=== PATIENT | female | born 1960 | race Two or more races ===

== ENCOUNTER 2017-02-27 16:08 | Outpatient (CLI) | payer BC | END 2017-02-27 23:59 | disposition home or self-care (01) | LOC: LAB 16:08 | PROVIDERS: ATTEND Family Medicine | DX: Z12.4 Encounter for screening for malignant neoplasm of cervix (principal); Z11.3 Encounter for screening for infections with a predominantly sexual mode of transmission | CPT/HCPCS: 87491; 87591; 88142 ==

== ENCOUNTER 2017-03-20 12:49 | Outpatient (CLI) | payer BC ==
[~2017-03-20 12:49] MED LIST: LORAZEPAM INJ 2 MG/ML VIAL ONE
[2017-03-20 15:56] LABS: BASOPHILS % (AUTO) 0.3 % (0.0-2.0); EOSINOPHILS # (AUTO) 0.1 /CMM (0.0-0.7); EOSINOPHILS % (AUTO) 2.1 % (0.0-6.0); HEMATOCRIT 40 % (33-45); HEMOGLOBIN 13.5 g/dL (11.5-14.8); LYMPHOCYTES # (AUTO) 1.9 /CMM (0.8-4.8); LYMPHOCYTES % (AUTO) 37.6 % (20.0-44.0); MEAN CORPUSCULAR HEMOGLOBIN 32 PG (26.0-33.0); MEAN CORPUSCULAR HGB CONC 34 g/dl (31.0-36.0); MEAN CORPUSCULAR VOLUME 96 fL (82-100); MONOCYTES # (AUTO) 0.4 /CMM (0.1-1.30); MONOCYTES % (AUTO) 8.5 % (2.0-12.0); NEUTROPHILS # (AUTO) 2.6 /CMM (1.8-8.9); NEUTROPHILS % (AUTO) 51.5 % (43.0-81.0); PLATELET COUNT (AUTO) 181 /CMM (150-450); RDW COEFFICIENT OF VARIATION 13.3 (11.5-15.0); RED BLOOD CELL COUNT(AUTO) 4.18 MIL/uL (4.0-5.2); WHITE BLOOD COUNT (AUTO) 5.1 K/uL (4.3-11.0)
[2017-03-20 16:07] LABS: APPEARANCE,URINE CLEAR (CLEAR); BILIRUBIN,URINE NEGATIVE (NEGATIVE); BLOOD, URINE NEGATIVE Ery/uL (NEGATIVE); COLOR,URINE YELLOW (YELLOW); KETONES,URINE NEGATIVE (NEGATIVE); LEUKOCYTE ESTERASE ,URINE NEGATIVE (NEGATIVE); NITRITE, URINE NEGATIVE (NEGATIVE); PH,URINE 7.5 (5.0-8.0); PROTEIN,URINE NEGATIVE (NEGATIVE); UGLUCOSE NEGATIVE (NEGATIVE); UROBILINOGEN,URINE 0.2 EU/dL (0.2)
[2017-03-20 16:13] LABS: ALBUMIN 3.8 g/dL (3.4-5.0); BILIRUBIN,TOTAL 0.4 mg/dL (0.2-1.0); CREATININE 0.6 mg/dL (0.6-1.3); POTASSIUM 3.5 mmol/L (3.5-5.1); TOTAL PROTEIN, SERUM 7.9 g/dL (6.4-8.2)
[2017-03-20 16:50] LABS: THYROID STIMULATING HORMONE 2.037 uIU/mL (0.358-3.74)
== END 2017-03-20 23:59 | disposition home or self-care (01) ==
LOC: MRI 12:49
PROVIDERS: ATTEND Family Medicine
DX: Z00.01 Encounter for general adult medical examination with abnormal findings (principal); Z11.59 Encounter for screening for other viral diseases; S83.232A Complex tear of medial meniscus, current injury, left knee, initial encounter; S83.231A Complex tear of medial meniscus, current injury, right knee, initial encounter; M17.12 Unilateral primary osteoarthritis, left knee; M17.11 Unilateral primary osteoarthritis, right knee; M71.22 Synovial cyst of popliteal space [Baker], left knee; M71.21 Synovial cyst of popliteal space [Baker], right knee; M25.462 Effusion, left knee; M25.461 Effusion, right knee; E55.9 Vitamin D deficiency, unspecified; X58.XXXA Exposure to other specified factors, initial encounter; Y93.89 Activity, other specified; Y92.89 Other specified places as the place of occurrence of the external cause; Y99.8 Other external cause status
CPT/HCPCS: 36415; 73721-TC; 80053-TC; 80061-TC; 81000-TC; 82306; 84439-TC; 84443-TC; 85025-TC; 86431-TC; 86803; 87086-TC; J2060

== ENCOUNTER 2018-02-22 20:43 | Emergency (ER) | payer BC ==
[~2018-02-22] VITALS: Ht 154.9 cm; Wt 70.3 kg
[2018-02-22 21:00] VITALS: BP 138/78
--- NOTE | 2018-02-22 21:01 | NUR ---
BIB DAUGHTER FOR LEFT EYE PAIN AND REDNESS SINCE THIS MORNING, DENIES TRAUMA. PT AOX3 RR EVEN AND UNLABORED. NO SOB NOTED. NAD NOTED. NO NVD AT THIS TIME. PT WAITING FOR MD ADAMSON.
[2018-02-22] MEDS ORDERED: TETRACAINE HCL/PF 0.5% UD 2 ML BOTTLE ONE (21:05)
[2018-02-22] MEDS ORDERED: FLUORESCEIN SODIUM OPHTH 1 EA STRIP ONE (21:05)
== END 2018-02-22 22:44 | disposition home or self-care (01) ==
LOC: ER 20:51
DX: H10.9 Unspecified conjunctivitis (principal)
CPT/HCPCS: A4606; Z7610

== ENCOUNTER 2018-07-23 15:42 | Outpatient (CLI) | payer BC | END 2018-07-23 23:59 | disposition home or self-care (01) | LOC: LAB 15:42 | PROVIDERS: ATTEND Family Medicine | DX: Z12.4 Encounter for screening for malignant neoplasm of cervix (principal) | CPT/HCPCS: 88142 ==

== ENCOUNTER 2018-10-28 13:27 | Emergency (ER) | payer BC ==
[~2018-10-28] VITALS: Ht 154.9 cm; Wt 70.3 kg
[2018-10-28 13:27] VITALS: BP 160/84
== END 2018-10-28 16:10 | disposition home or self-care (01) ==
LOC: ER 13:29
DX: M17.0 Bilateral primary osteoarthritis of knee (principal); M25.462 Effusion, left knee; M25.461 Effusion, right knee
CPT/HCPCS: 73564-TC

== ENCOUNTER 2018-12-08 09:38 | Outpatient (CLI) | payer BC | END 2018-12-08 23:59 | disposition home or self-care (01) | LOC: DS 09:38 → RAD 23:59 | PROVIDERS: ATTEND Family Medicine | DX: Z01.818 Encounter for other preprocedural examination (principal); J98.11 Atelectasis; I70.0 Atherosclerosis of aorta | CPT/HCPCS: 71046 ==

== ENCOUNTER 2018-12-15 05:03 | Inpatient (IN) | payer BC ==
[~2018-12-15] VITALS: Ht 147.3 cm; Wt 68.0 kg
[2018-12-15 05:00] VITALS: BP 144/78
--- NOTE | 2018-12-15 05:49 | NUR ---
DAY SURGERY RN NOTES PATIENT ARRIVED ON MED SURG FLOOR ACCOMPANIED BY SPOUSE. ALERT, ORIENTED X3, AMBULATORY, DENIES PAIN. SKIN INTACT AND DRY, RESPIRATIONS EVEN AND UNLABORED, NO PAIN REPORTED OR OBSERVED, VITAL SIGNS CHECK SBP 144/78, PULSE 68, TEMPERATURE 98.2, RESPIRATIONS 118. IV SITE ON LEFT FOREARM GAUGE 20 PATENT, PATIENT COOPERATIVE TO CARE, CONCENT FOR SURGERY SIGNED, BELONGINGS CHECK, DISCUSSED PLAN OF CARE AND TYPE OF SURGERY ADMITING SURGEON MD PELAYO. ADMISSION PROVIDED FOR DAY SURGEY FOR PROCEDURE OF RIGHT TOTAL KNEE ARTROPLASTY. AWAITING FOR GOLF BALL MARKER TIME
[2018-12-15] MEDS ORDERED: ANESTHESIA TRAY IN PYXIS 1 EA TRAY MC ONE (06:10)
[2018-12-15] MEDS ORDERED: BACITRACIN 50000 UNITS/VIAL ONE (06:10)
--- NOTE | 2018-12-15 06:15 | NUR ---
MS/RN NOTES DAY SURGERY OPERATING ROOM NURSE PICKED UP PATIENT FOR SCHEDULED OPERATION, CONSENT FROM SIGNED, ID BAND PLACED, PATIENT GOWNED , IV ON LEFT FOREARM PLACED, NPO STATUS, BELONGINGS SENT WITH SPOUSE, VITAL SIGNS CHECKED, ADMITING SURGEON DR. PELAYO FOR THE OPERATION. MEENAKSHI WAS BROUGHT TO OPERATING ROOM ON A GURNEY.
[2018-12-15] MEDS ORDERED: HYDROMORPHONE INJ 2 MG/ML DISP.SYRIN ONE (06:35)
[2018-12-15 06:36] VITALS: BP 144/78
[2018-12-15] MEDS ORDERED: TRANEXAMIC ACID 3,000 MG in SODIUM CHLORIDE IRRIG SOLUTION 70 ML IR ONE (07:30)
--- NOTE | 2018-12-15 07:49 | NUR ---
MS RN OPENING NOTES Patient in OR for TOTAL KNEE ARTHROPLASTY. Received report and plan of care from night nurse. Room kept clean. Will continue to monitor.
[2018-12-15] MEDS ORDERED: OXYC-454 PO (09:34)
--- NOTE | 2018-12-15 09:35 | NUR ---
MS RN NOTES Patient returned from OR. Received Patient awake and resting in bed. A/O x 4. VS stable with no acute distress. Breathing even and unlabored on room air with no respiratory distress. Patient stated mild pain on RLE. Repositioned Patient per Patients request. Patient stated that she wants to eat before receiving pain medication. Will provided comfort measures. RLE dressing clean, dry, and intact. 20g PIV on LEFT WRIST clean, dry, intact and flushing well. Safety precautions in place. Bed locked and set to lowest position with side rails x 2 up. Will continue to monitor.
[2018-12-15] MEDS ORDERED: diphenhydrAMINE HCL 25 MG CAPSULE PO PRN (10:30)
[2018-12-15] MEDS ORDERED: MAG HYDROX/AL HYDROX/SIMETH 30 ML UDC PO PRN (10:30)
[2018-12-15] MEDS ORDERED: MORPHINE SULFATE INJ 4 MG/ML DISP.SYRIN IM PRN (10:30)
[2018-12-15] MEDS ORDERED: TYLENOL 650 MG TABLET PO PRN (11:00)
[2018-12-15] MEDS ORDERED: DULCOLAX 10 MG/SUPP.RECT RC PRN (11:00)
[2018-12-15] MEDS ORDERED: SENOKOT 8.6 MG TABLET PO PRN (11:00)
[2018-12-15] MEDS ORDERED: ZOFRAN 4mg/2ML IV PRN (11:00)
[2018-12-15] MEDS ORDERED: COLACE 100 MG CAPSULE PO PRN (11:00)
[2018-12-15] MEDS: FAMOTIDINE (20 MG) 20 MG TABLET PO SCH ×2 (11:21→21:00)
[2018-12-15] MEDS: IV D5/0.45 NACL 1,000 ML IV PRN ×2 (11:22→21:28)
[2018-12-15] MEDS: MORPHINE SULFATE INJ 4 MG/ML DISP.SYRIN IV PRN ×3 (11:23→19:09)
[2018-12-15 12:00] VITALS: BP 121/67
[2018-12-15] MEDS ORDERED: Z GUARD REMEDY 2 OZ OINT TP PRN (12:30)
[2018-12-15] MEDS ORDERED: ZOLPIDEM TARTRATE 5 MG TABLET PO PRN (12:30)
[2018-12-15] MEDS ORDERED: MAGNESIUM HYDROXIDE 30 ML UDC PO PRN (12:30)
[2018-12-15] MEDS: ANCEF 1 G in IV D5W 50 ML IV SCH ×2 (15:32→22:31)
[2018-12-15 16:00] VITALS: BP 127/73
--- NOTE | 2018-12-15 18:50 | NUR ---
MS RN CLOSING NOTES Patient awake and resting in bed. A/O x 4. VS stable with no acute distress. Breathing even and unlabored on room air with no respiratory distress. Patient stated 7/10 pain on RIGHT KNEE. Administered Morphine 2mg IVP per Patients request. Will endorse to oncoming shift. RLE dressing clean, dry, and intact. 20g PIV on LEFT WRIST clean, dry, intact and flushing well with D51/2NS running at 125ml/hr. Safety precautions in place. Bed locked and set to lowest position with side rails x 2 up. Call light within reach. at bedside. Will endorse plan of care to oncoming shift.
--- NOTE | 2018-12-15 19:38 | NUR ---
MS RN OPENING NOTES: RECEIVED PT SITTING UP IN BED AND RESTING COMFORTABLY AT THIS TIME. PT IS A/OX4. NO SOB NOTED. NO PAIN VERBALIZED AT THIS TIME. PT ON ROOM AIR AND TOLERATING WELL. PT HAS IV ON L FOREARM #20G AND IS BEING INFUSED WITH IV D51/2NS AT 125ML/HR. BED KEPT IN LOW, LOCKED POSITION, AND SIDE RAILS X UP. WILL CONTINUE TO MONITOR PT.
[2018-12-15 20:18] VITALS: BP 111/61
--- NOTE | 2018-12-15 20:43 | NUR ---
MS RN NOTES: DR. CASTRO ON FLOOR. CLARIFIED THAT PT IS OK NOT TO BE ON SENIOR MAINTENANCE TECHNICIAN. OK TO GIVE MORPHINE ORDERED IM AND IV.
--- NOTE | 2018-12-15 20:47 | NUR ---
MS RN NOTES: DR. CASTRO AT BEDSIDE.
[2018-12-15] MEDS: HYDROCODONE/APAP 10/325MG 1 EA TABLET PO PRN (21:01)
--- NOTE | 2018-12-15 21:03 | NUR ---
MS RN NOTES: PT STARTING TO COMPLAIN OF PAIN COMING BACK ON HER R KNEE 12/13. PT WAS ADMINISTERED NORCO 10 PO. ALSO, PT WAS ADMINISTERED SENOKOT 17.2MG PO SINCE SHE HAS NOT HAD A BM. WILL CONTINUE TO MONITOR.
[2018-12-15] MEDS ORDERED: AMBIEN 5 MG TABLET PO PRN (22:00)
[2018-12-16] MEDS: IV D5/0.45 NACL 1,000 ML IV PRN ×2 (05:19→18:53)
[2018-12-16] MEDS: HYDROCODONE/APAP 10/325MG 1 EA TABLET PO PRN ×4 (05:22→23:03)
--- NOTE | 2018-12-16 06:47 | NUR ---
MS RN CLOSING NOTES: ALL NEEDS WERE ATTENDED AND ANTICIPATED FOR. PT KEPT CLEAN, DRY, AND COMFORTABLE. PT ASLEEP AT THIS TIME AND RESTING COMFORTABLY. PT HAS IV ON L WRIST #20G AND IS BEING INFUSED WITH IV D5 1/2NS AT 125ML/HR. RICHARD BANDAGE REMAINS ON R KNEE/LEG. BED KEPT IN LOW, LOCKED POSITION, AND SIDE RAILS X 2UP. WILL ENDORSE TO AM NURSE FOR ERIN.
[2018-12-16 06:48] LABS: BASOPHILS % (AUTO) 0.3 % (0.0-2.0); EOSINOPHILS % (AUTO) 0.5 % (0.0-6.0); HEMATOCRIT 34 % (33-45); HEMOGLOBIN 12.1 g/dL (11.5-14.8); LYMPHOCYTES # (AUTO) 1.8 /CMM (0.8-4.8); LYMPHOCYTES % (AUTO) 21.2 % (20.0-44.0); MEAN CORPUSCULAR HGB CONC 36 g/dl (31.0-36.0); MEAN CORPUSCULAR VOLUME 97 fL (82-100); MONOCYTES # (AUTO) 0.8 /CMM (0.1-1.30); MONOCYTES % (AUTO) 9.2 % (2.0-12.0); NEUTROPHILS # (AUTO) 5.9 /CMM (1.8-8.9); NEUTROPHILS % (AUTO) 68.8 % (43.0-81.0); PLATELET COUNT (AUTO) 175 /CMM (150-450); RED BLOOD CELL COUNT(AUTO) 3.48 MIL/uL (4.0-5.2); WHITE BLOOD COUNT (AUTO) 8.6 K/uL (4.3-11.0)
[2018-12-16 07:07] LABS: ALBUMIN 2.7 g/dL (3.4-5.0); BILIRUBIN,TOTAL 0.5 mg/dL (0.2-1.0); CREATININE 0.5 mg/dL (0.6-1.3); MAGNESIUM 1.7 mg/dL (1.8-2.4); POTASSIUM 3.3 mmol/L (3.5-5.1); TOTAL PROTEIN, SERUM 6.2 g/dL (6.4-8.2)
--- NOTE | 2018-12-16 07:50 | NUR ---
MS RN RECEIVED ON BED, AWAKE,ALERT,ORIENTED X4,NOT IN ANY FORM OF DISTRESS, RESPIRATIONS EVEN AND UNLABORED,NO SOB NOTED,S/P RIGHT KNEE SURGERY W/ DRESSING DRY AND INTACT, DENIES PAIN AT THIS TIME.WILL MONITOR PATIENT.
[2018-12-16 08:00] VITALS: BP 111/61
--- NOTE | 2018-12-16 08:30 | NUR ---
MS BACON BREAKFAST SERVEDMDUE MEDS GIVEN,TOLERATED WELL.
[2018-12-16] MEDS: FAMOTIDINE (20 MG) 20 MG TABLET PO SCH ×2 (08:35→21:40)
[2018-12-16] MEDS: ASPIRIN 325 MG TABLET PO SCH ×2 (08:35→17:15)
[2018-12-16] MEDS: MORPHINE SULFATE INJ 4 MG/ML DISP.SYRIN IV PRN ×4 (08:35→18:52)
[2018-12-16] MEDS ORDERED: POTASSIUM CHLORIDE 20 MEQ TAB.PRT.SR PO SCH (11:30)
--- NOTE | 2018-12-16 11:30 | NUR ---
MS RN WAS SEEN BY ORTHO ,NO ORDERS MADE AT THIS TIME.
[2018-12-16] MEDS: Magnesium 1GM/D5W 100ML PREMIX 100 ML IV SCH ×2 (11:38→13:27)
--- NOTE | 2018-12-16 14:20 | NUR ---
MS RN UP W/ PT, TOLERATED WELL.
[2018-12-16 16:00] VITALS: BP 133/71
--- NOTE | 2018-12-16 16:00 | NUR ---
MS RN PATIENT IS REGULARLY GETTING PAIN MEDS FOR PAIN MGT.
--- NOTE | 2018-12-16 18:33 | NUR ---
MS RN ON BED,NO DISTRESS NOTED, NEW IV AT LEFT FOREARM INSERTED.
--- NOTE | 2018-12-16 19:30 | NUR ---
MS RN NOTE: PATIENT RESTING IN BED, NO ACUTE DISTRESS NOTED. BREATHING EVEN AND UNLABORED, NO SOB NOTED. IV TO LEFT WRIST IN PLACE. DRESSING TO RIGHT KNEE IN PLACE, NO BLEEDING NOTED. BED LOCKED AND IN LOWEST POSITION, CALL LIGHT IN REACH. WILL CONTINUE TO MONITOR.
[2018-12-16 19:54] VITALS: BP 136/72
--- NOTE | 2018-12-16 23:15 | NUR ---
MS RN NOTE: PATIENT COMPLAINS OF PAIN TO RIGHT KNEE 8/, NORCO 10/325MG 1 TAB GIVEN PER MD ORDER. WILL CONTINUE TO MONITOR.
--- NOTE | 2018-12-17 06:05 | NUR ---
MS RN NOTE: PATIENT RESTING IN BED, NO ACUTE DISTRESS NOTED. BREATHING EVEN AND UNLABORED, NO SOB NOTED. IV TO LEFT WRIST IN PLACE. DRESSING TO RIGHT KNEE IN PLACE, NO BLEEDING NOTED. BED LOCKED AND IN LOWEST POSITION, CALL LIGHT IN REACH. WILL ENDORSE TO DAY NURSE TO CONTINUE WITH PLAN OF CARE.
[2018-12-17 06:45] LABS: CALCIUM, SERUM 7.9 mg/dL (8.5-10.1); CREATININE 0.5 mg/dL (0.6-1.3); MAGNESIUM 2.1 mg/dL (1.8-2.4); POTASSIUM 3.2 mmol/L (3.5-5.1)
--- NOTE | 2018-12-17 07:50 | NUR ---
MS RN RECEIVED ON BED, AWAKE,ALERT,ORIENTED X4,NOT IN ANY FORM OF DISTRESS,RESPIRATIONS EVEN AND UNLABORED, ABDOMEN SOFT,POSITIVE BOWEL SOUNDS,S/P RIGHT KNEE SURGERY , DENIES PAIN AT THIS TIME.WILL MONITOR PATIENT.
[2018-12-17 08:00] VITALS: BP 119/70
--- NOTE | 2018-12-17 08:00 | NUR ---
MS RN WAS SEEN BY DG Mendez/ [place] TO GO HOME TODAY.
--- NOTE | 2018-12-17 09:06 | NUR ---
MS BACON BREAKFAST SERVED, DUE MEDS GIVEN,TOLERATED WELL.
[2018-12-17] MEDS: HYDROCODONE/APAP 10/325MG 1 EA TABLET PO PRN ×2 (09:22→12:15)
[2018-12-17] MEDS: ASPIRIN 325 MG TABLET PO SCH (09:22)
[2018-12-17] MEDS: FAMOTIDINE (20 MG) 20 MG TABLET PO SCH (09:22)
--- NOTE | 2018-12-17 11:00 | NUR ---
MS RN UP W/ PT,TOLERATED WELL.
[2018-12-17] MEDS: POTASSIUM CHLORIDE 20 MEQ TAB.PRT.SR PO SCH ×2 (11:42→12:13)
--- NOTE | 2018-12-17 12:40 | NUR ---
MS ASSEMBLY DETAILER INSTRUCTION GIVEN AND UNDERSTOOD, WENT HOME ACCOMPANIED BY FAMILY, ALL NEEDS ATTENDED.
== END 2018-12-17 12:30 | disposition home health service (06) | DRG 470 ==
LOC: DS 05:03 → MED 05:04
PROVIDERS: ADMIT Hospitalist; ATTEND Nurse Practitioner Acute Care
PROC: 0SRC0J9 Replacement of Right Knee Joint with Synthetic Substitute, Cemented, Open Approach (ICD-10-PCS; principal; 2018-12-15)
DX: M17.11 Unilateral primary osteoarthritis, right knee (principal); E66.9 Obesity, unspecified; Z98.890 Other specified postprocedural states; Z68.31 Body mass index [BMI] 31.0-31.9, adult; M22.41 Chondromalacia patellae, right knee; S83.289A Other tear of lateral meniscus, current injury, unspecified knee, initial encounter
CPT/HCPCS: 36415; 80048-TC; 80053-TC; 80061-TC; 83735-TC; 84100-TC; 85025-TC; 87081-TC; 88305-TC; 88311-TC; 97110-TC; 97116-TC; 97530-TC; 97760-TC; A4217; C1713; G0378; J0360; J0690; J1100; J1170; J1885; J2270; J2405; J2704; J3475; J3490; J7060; L1830

== ENCOUNTER 2019-02-19 11:21 | Outpatient (CLI) | payer BC ==
[~2019-02-19 11:21] MED LIST changes: -LORAZEPAM INJ 2 MG/ML VIAL ONE; +OXYC-454 PO
== END 2019-02-19 23:59 | disposition home or self-care (01) ==
LOC: CT 11:21
PROVIDERS: ATTEND Family Medicine
DX: I70.0 Atherosclerosis of aorta (principal); K76.9 Liver disease, unspecified
CPT/HCPCS: 71250-TC

== ENCOUNTER 2019-04-06 05:00 | Inpatient (IN) | payer BC ==
[~2019-04-06] VITALS: Ht 154.9 cm; Wt 72.6 kg
--- NOTE | 2019-04-06 05:15 | NUR ---
MS SENIOR BIOSTATISTICIAN/GROUP LEADER NOTES RECEIVED PATIENT FOR DAY SURGERY OF L UNICOMPARTMENTAL ARTHROPLASTY DIRECT FROM HOME. AMBULATORY WITH FAMILY AT BEDSIDE. ASSISTED TO ROOM ASSIGNED, ADMISSION ROUTINE DONE. BELONGINGS INVENTORY COMPLETED BY THE ASSIGNED AIRPORT OPERATIONS DUTY MANAGER. INITIATED IV LINE G#20 L HAND, BLOOD RETURN NOTED AFTER FIRST ATTEMPT, SECURED ASEPTICALLY. WITNESSED CONSENTS SIGNED BY THE PATIENT, VERBALIZED UNDERSTANDING. PER PATIENT LAST FOOD AND WATER INTAKE 04/05/2019 @ 1700. KEPT ON BED CLEAN, DRY AND COMFORTABLE. CALL LIGHT AT BEDSIDE. PATIENT APPEARED CALM AND COMFORTABLE.
[2019-04-06] MEDS ORDERED: MIDAZOLAM HCL 2 MG/2ML VIAL ONE (06:06)
[2019-04-06] MEDS ORDERED: FENTANYL PF 250MCG/5ML AMPUL ONE ×2 (06:06→06:07)
[2019-04-06] MEDS ORDERED: BUPIVACAINE 0.25% 75 MG/30 ML VIAL ONE (06:07)
[2019-04-06] MEDS ORDERED: MEPERIDINE HCL/PF 100 MG/ML DISP.SYRIN ONE (06:08)
[2019-04-06] MEDS ORDERED: FAMOTIDINE/PF INJ 20 MG/2 ML VIAL IV ONE (06:08)
[2019-04-06] MEDS ORDERED: ANESTHESIA TRAY IN PYXIS 1 EA TRAY MC ONE (06:10)
[2019-04-06] MEDS ORDERED: BUPIVACAINE 0.5 % PF 150 MG/30 ML VIAL ONE (06:11)
[2019-04-06] MEDS ORDERED: BACITRACIN 50000 UNITS/VIAL ONE (06:11)
--- NOTE | 2019-04-06 06:24 | NUR ---
MS RN NOTES Patient picked up by OR staff at this time via hospital bed.
[2019-04-06] MEDS ORDERED: TRANEXAMIC ACID 3,000 MG in SODIUM CHLORIDE IRRIG SOLUTION 70 ML IR ONE (07:00)
--- NOTE | 2019-04-06 07:45 | NUR ---
MS RN OPENING NOTES PATIENT STILL IN SURGERY.
[2019-04-06] MEDS ORDERED: DOCUSATE SODIUM 250 MG CAPSULE PO PRN (09:30)
[2019-04-06] MEDS ORDERED: ACETAMINOPHEN 325 MG TABLET PO PRN (09:30)
[2019-04-06] MEDS ORDERED: ZOLPIDEM TARTRATE 5 MG TABLET PO PRN (09:30)
[2019-04-06] MEDS ORDERED: BISACODYL SUPP (10 MG) 10 MG/SUPP.RECT SUPP.RECT RC PRN (09:30)
[2019-04-06] MEDS ORDERED: SENNOSIDES 8.6 MG TABLET PO PRN (09:30)
[2019-04-06] MEDS ORDERED: HYDROCODONE/APAP 5/325MG 1 EACH TABLET PO PRN (09:30)
--- NOTE | 2019-04-06 09:35 | NUR ---
MS RN NOTES PATIENT BACK FROM OR. LEFT TOTAL KNEE REPLACEMENT DONE. SURGICAL SITE DRESSING DRY AND INTACT. ICE PACK PLACED ON PATIENTS LEFT KNEE FOR COMFORT. ON ROOM AIR. ALERT & ORIENTED X 4. PATIENT'S DAUGHTER, GLENIS, PRESENT AT THE BEDSIDE. PATIENT COMPLAINING OF PAIN RATED 7/10. IV PRESENT ON LEFT HAND, SIZE 22. D51/2 RUNNING AT125 ML/HR. VITALS SIGNS - BP: 144/90 HR: 93 RR: 18 TEMP: 97.7 SPO2: 97. CALL LIGHT WITHIN PATIENT'S REACH. WILL CONTINUE TO MONITOR.
[2019-04-06 09:37] VITALS: BP 144/90
--- NOTE | 2019-04-06 09:44 | NUR ---
MS RN NOTES PATIENT COMPLAINING OF ACUTE PAIN RATED 7/10 IN HER LEFT KNEE. PER PATIENT'S REQUEST ADMINISTERED NORCO 5/325 MG PRN. VITAL SIGNS - BP: 144/90, HR: 93, RR: 18, TEMP: 97.7 SPO2: 97 ON ROOM AIR. PATIENT CALL LIGHT WITHIN REACH. WILL CONTINUE TO MONITOR EFFECTIVENESS OF PAIN MEDICATION.
[2019-04-06] MEDS: IV D5/0.45 NACL 1,000 ML IV PRN ×2 (09:48→20:01)
[2019-04-06 10:10] VITALS: BP 143/78
[2019-04-06] MEDS ORDERED: HYDROCODONE/APAP 10/325MG 1 EA TABLET PO PRN (11:00)
[2019-04-06] MEDS ORDERED: diphenhydrAMINE HCL 25 MG CAPSULE PO PRN (11:00)
[2019-04-06] MEDS ORDERED: MAG HYDROX/AL HYDROX/SIMETH 30 ML UDC PO PRN (11:00)
[2019-04-06] MEDS: ONDANSETRON HCL/PF 4 MG/2 ML VIAL IVP PRN ×3 (11:05→20:02)
[2019-04-06] MEDS: MORPHINE SULFATE INJ 4 MG/ML DISP.SYRIN IV PRN ×3 (13:20→20:02)
--- NOTE | 2019-04-06 13:20 | NUR ---
MS RN NOTES PATIENT COMPLAINING OF PAIN IN HER LEFT KNEE RATED 5/10. PER PATIENT'S REQUEST ADMINISTERED 2MG MORPHINE PRN. PATIENT CALL LIGHT WITHIN REACH. WILL CONTINUE TO MONITOR EFFECTIVENESS OF PAIN MEDICATION.
--- NOTE | 2019-04-06 14:00 | NUR ---
MS RN NOTES PATIENT AMBULATED WITH PT. ABLE TO AMBULATE WITH WALKER TO THE DOOR AND BACK TO BED. CPM MACHINE ON. PAIN MEDICATION GIVEN EFFECTIVE. CALL LIGHT WITHIN REACH. WILL CONTINUE TO MONITOR.
[2019-04-06] MEDS: ANCEF 1 GM/50 ML D5W IV SCH ×4 (15:20→22:35)
[2019-04-06 16:00] VITALS: BP 149/85
--- NOTE | 2019-04-06 17:52 | NUR ---
MS RN NOTES PATIENT COMPLAINING OF PAIN IN THE LEFT KNEE RATED 7/10. PER PATIENT'S REQUEST ADMINISTERED 2MG OF MORPHINE PRN. PATIENT CALL LIGHT WITHIN REACH. WILL CONTINUE TO MONITOR EFFECTIVENESS OF PAIN MEDICATION.
--- NOTE | 2019-04-06 18:20 | NUR ---
MS RN CLOSING NOTES PATIENT RESTING IN BED. ALERT & ORIENTED X 4. PATIENT ON ROOM AIR. NO SIGNS OF ACUTE RESPIRATORY DISTRESS. PRN PAIN MEDICATION GIVEN EFFECTIVE. DRESSING AND WRAP ON LEFT LEG DRY AND INTACT. SCD PLACED ON RIGHT LEG. IV ON LEFT HAND W/ D51/2 RUNNING AT 125 ML/HR. PATIENT CALL LIGHT WITHIN REACH. WILL ENDORSE TO PLANT AND INSTRUMENT ENGINEER NURSE TO FOLLOW PLAN OF CARE.
--- NOTE | 2019-04-06 19:20 | NUR ---
MS RN OPENING NOTES Received patient A/O x4, awake on bed. S/P post-op day 0, L knee arthroplasty. With complaint of pain, awaiting for due meds to be given. With episode of N/V x2 noted. On RA, no SOB/respiratory distress noted at this time. Kept on bed clean, dry and comfortable. Call light within easy reach. On fall and aspiration precautions. Call light within easy reach. Will continue to monitor accordingly.
[2019-04-06 20:30] VITALS: BP 146/86
[2019-04-06] MEDS: FAMOTIDINE (20 MG) 20 MG TABLET PO SCH (21:07)
[2019-04-06] MEDS: MORPHINE SULFATE INJ 4 MG/ML DISP.SYRIN IM PRN (23:19)
--- NOTE | 2019-04-07 01:04 | NUR ---
MS JORDI NOTES Endorsed to JORDI Velez for ERIN.
--- NOTE | 2019-04-07 01:05 | NUR ---
MS/RN NOTES: REPORT GIVEN BY AJAY FOR ERIN. RECEIVED PATIENT IN A STABLE CONDITION. PATIENT IS A/OX4. VERBALLY RESPONSIVE AND ABLE TO MAKE NEEDS KNOWN. ON ROOM AIR, NO SOB NOTED. NO S/S OF ACUTE DISTRESS. NO COMPLAINS OF PAIN AT THIS TIME. RECEIVED PATIENT WITH INFILTRATED IV ACCESS ON LEFT HAND #20G. REMOVED IV LINE AND APPLIED PRESSURE TO STOP BLEEDING. SAFETY PRECAUTIONS KEPT IN PLACE. CALL LIGHT WITHIN EASY REACH. WILL CONTINUE TO MONITOR ACCORDINGLY.
--- NOTE | 2019-04-07 01:42 | NUR ---
MS RN NOTES: INSERTED A NEW IV LINE ON THE LEFT FOREARM #22G. INTACT, PATENT, AND FLUSHING WELL.
[2019-04-07] MEDS: MORPHINE SULFATE INJ 4 MG/ML DISP.SYRIN IM PRN ×2 (02:19→21:50)
--- NOTE | 2019-04-07 02:19 | NUR ---
MS/RN NOTES: PATIENT COMPLAINED OF PAIN LEVEL OF 9 ON LEFT KNEE. MORPHINE 4 MG IV WAS GIVEN. PATIENT'S VITAL SIGNS STABLE. WILL CONTINUE TO MONITOR ACCORDINGLY.
[2019-04-07] MEDS: IV D5/0.45 NACL 1,000 ML IV PRN (05:53)
[2019-04-07 06:24] LABS: BASOPHILS % (AUTO) 0.3 % (0.0-2.0); EOSINOPHILS % (AUTO) 0.5 % (0.0-6.0); HEMATOCRIT 38 % (33-45); HEMOGLOBIN 13.4 g/dL (11.5-14.8); LYMPHOCYTES # (AUTO) 1.3 /CMM (0.8-4.8); LYMPHOCYTES % (AUTO) 16.4 % (20.0-44.0); MEAN CORPUSCULAR HGB CONC 35 g/dl (31.0-36.0); MEAN CORPUSCULAR VOLUME 94 fL (82-100); MONOCYTES # (AUTO) 0.8 /CMM (0.1-1.30); MONOCYTES % (AUTO) 10.1 % (2.0-12.0); NEUTROPHILS # (AUTO) 5.9 /CMM (1.8-8.9); NEUTROPHILS % (AUTO) 72.7 % (43.0-81.0); PLATELET COUNT (AUTO) 171 /CMM (150-450); WHITE BLOOD COUNT (AUTO) 8.1 K/uL (4.3-11.0)
[2019-04-07 06:43] LABS: THYROID STIMULATING HORMONE 0.883 uIU/mL (0.358-3.74)
--- NOTE | 2019-04-07 07:28 | NUR ---
MS/RN CLOSING NOTE: PATIENT IS AWAKE IN BED. ALERT & ORIENTED X 4. ON ROOM AIR. NO SIGNS OF ACUTE RESPIRATORY DISTRESS. IV ON LEFT FA #22G W/ D51/2 RUNNING AT 125 ML/HR. PATIENT CALL LIGHT WITHIN REACH. SAFETY PRECAUTION KEPT IN PLACE. ALL DUE MEDS GIVEN ORDERED. ALL NURSING NEEDS MET AND PROVIDED. WILL ENDORSE TO DAY SHIFT NURSE FOR ERIN.
[2019-04-07] MEDS: MORPHINE SULFATE INJ 4 MG/ML DISP.SYRIN IV PRN ×4 (07:35→15:30)
--- NOTE | 2019-04-07 07:40 | NUR ---
MS RN OPENING NOTES PATIENT AWAKE RESTING IN BED. ALERT & ORIENTED X 4. ON ROOM AIR. LEFT KNEE DRESSING AND WRAP DRY AND INTACT. LEFT LEG ELEVATED WITH PILLOW. SCD ON RIGHT LEG. IV ON LEFT HAND W/ D51/2 RUNNING AT 125 ML/HR. PATIENT COMPLAINED OF LEFT KNEE PAIN RATED 7/10. PER PATIENT'S REQUEST, ADMINISTERED 2MG MORPHINE PRN. PATIENT CALL LIGHT WITHIN REACH. WILL CONTINUE TO MONITOR EFFECTIVENESS OF PAIN MEDICATION.
[2019-04-07 07:48] LABS: CALCIUM, SERUM 8.3 mg/dL (8.5-10.1); CREATININE 0.6 mg/dL (0.6-1.3); PHOSPHORUS 3.1 mg/dL (2.5-4.9)
[2019-04-07 08:03] LABS: MAGNESIUM 1.6 mg/dL (1.8-2.4)
[2019-04-07 08:33] LABS: POTASSIUM 2.8 mmol/L (3.5-5.1)
[2019-04-07] MEDS: FAMOTIDINE (20 MG) 20 MG TABLET PO SCH ×2 (08:53→20:12)
[2019-04-07] MEDS: ASPIRIN 325 MG TABLET PO SCH ×2 (08:54→16:39)
[2019-04-07] MEDS: ONDANSETRON HCL/PF 4 MG/2 ML VIAL IVP PRN (08:55)
[2019-04-07] MEDS ORDERED: POTASSIUM CHLORIDE 20 MEQ TAB.PRT.SR PO ONE (09:00)
[2019-04-07] MEDS ORDERED: MAGNESIUM OXIDE 400 MG TABLET PO ONE (09:00)
[2019-04-07] MEDS ORDERED: Magnesium 1GM/D5W 100ML PREMIX 100 ML IV SCH (09:13)
--- NOTE | 2019-04-07 10:59 | NUR ---
MS RN NOTES PATIENT COMPLAINING OF PAIN RATED 8/10 LOCATED IN HER LEFT LEG. PER PATIENT'S REQUEST ADMINISTERED 2MG OF MORPHINE PRN. VITAL SIGNS - BP: 142/81 HR: 95 RR: 18. CALL LIGHT WITHIN PATIENT'S REACH. WILL CONTINUE TO MONITOR EFFECTIVENESS OF PAIN MEDICATION.
--- NOTE | 2019-04-07 12:21 | NUR ---
MS RN NOTES PATIENT COMPLAINING OF CONSTIPATION. LAST BOWEL MOVEMENT WAS ON 04/05. ENCOURAGING PATIENT TO INCREASE FLUID INTAKE. PATIENT UNABLE TO AMBULATE DUE TO RECENT LEFT KNEE SURGERY. NOTIFIED DR. SHELTON AND RECEIVED ORDERS FOR 17.2 MG OF SENOKOT BID AND DULCOLAX 10MG PO.
[2019-04-07] MEDS ORDERED: BISACODYL (5 MG) 5 MG TABLET.DR PO ONE (12:30)
[2019-04-07] MEDS ORDERED: SENNOSIDES 8.6 MG TABLET PO PRN (12:30)
--- NOTE | 2019-04-07 13:12 | NUR ---
MS RN NOTES ADMINISTERED MORPHINE SULFATE 2 MG/ML IV PUSH FOR LEFT KNEE PAIN 12/13 PER PATIENT REQUEST, BP-163/88, P-98, R-19. CALL LIGHT WITHIN TO REACH, CONTINUED MONITORING. ENCOURAGED TO INCREASE FLUID INTAKE.
[2019-04-07] MEDS ORDERED: IV NS 0.9% 500 ML IV ONE (13:30)
--- NOTE | 2019-04-07 14:27 | NUR ---
Campus Aide consult requested by Dr.Domenick Alfonso for D/C Planning. Pt. was seen by Case management for D/C planning and Home Health referral. Upon Farmworker Livestock Consultation, the pt. laid in and was receptive to meeting with SW. The pt. was alert and oriented x 4. Pt. expressed she lives in a [address] [place] [address]. [place] [address]; [phone] with her and daughter. Per pt., she is well supported by her , Gamaliel Olson [phone] and her daughter, Cherie Olson [phone] who can assist her as needed. Per pt. this is her second knee and she is familiar with the recovery process and DME. Per pt. the only equipment she requires is CPM and case operator, Valeri will assit pt. with obtaining it. No further action required.
--- NOTE | 2019-04-07 14:40 | NUR ---
MS RN NOTES PATIENT COMPLAINING OF PAIN RATED 6/10. PER PATIENT'S REQUEST, ADMINISTERED 1 TAB OF NORCO 10/325 MG PRN. PATIENT CALL LIGHT WITHIN REACH. WILL CONTINUE TO MONITOR EFFECTIVENESS OF MEDICATION.
--- NOTE | 2019-04-07 15:30 | NUR ---
MS RN NOTES PATIENT STILL COMPLAINING OF PAIN IN HER LEFT LEG RATED 7/10. PER PATIENT'S REQUEST ADMINISTERED 2MG OF MORPHINE. PATIENT CALL LIGHT WITHIN REACH. WILL CONTINUE TO MONITOR EFFECTIVENESS OF PAIN MEDICATION.
[2019-04-07 16:00] VITALS: BP 152/78
--- NOTE | 2019-04-07 18:20 | NUR ---
MS RN CLOSING NOTES PATIENT RESTING IN BED. ON ROOM AIR. VITALS WNL. SCDS ON BOTH LEGS. IV ON LEFT HAND RUNNING NS AT 80MLS/HR. LEFT LEG DRESSING/WRAPPING DRY AND INTACT. NO SIGNS OF ACUTE RESPIRATORY DISTRESS, NO S/S OF SOB. CALL LIGHT WITHIN REACH. WILL ENDORSE TO CRIMINAL JUSTICE DEPARTMENT CHAIR NURSE TO FOLLOW PLAN OF CARE.
--- NOTE | 2019-04-07 19:10 | NUR ---
MS/RN OPENING NOTES: RECEIVED PATIENT RESTING IN BED. ALERT & ORIENTED X 4. VERBALLY RESPONSIVE AND ABLE TO MAKE NEEDS KNOWN. ON ROOM AIR. BREATHING EVEN AND UNLABORED. NO SOB NOTED. NO S/S OF ACUTE DISTRESS. LEFT KNEE DRESSING AND WRAP DRY AND INTACT. LEFT LEG ELEVATED WITH PILLOW. SCD ON RIGHT LEG. IV ON LEFT HAND W/ D5 1/2 RUNNING AT 80 ML/HR. NO COMPLAINS OF PAIN AT THIS TIME. PATIENT IS WARM AND COMFORTABLE IN BED. PATIENT CALL LIGHT WITHIN REACH. POSSIBLE D/C FOR TOMORROW MORNING. PATIENT AWARE. WILL CONTINUE MONITORING ACCORDINGLY.
[2019-04-07 20:00] VITALS: BP 111/55
[2019-04-07 20:10] VITALS: BP 111/55
--- NOTE | 2019-04-07 21:50 | NUR ---
MS/RN NOTES: PATIENT COMPLAINED OF PAIN LEVEL 10 ON HER LEFT KNEE. PATIENT IS IN STABLE CONDITION, VITAL SIGNS WNL. ADMINISTERED 4MG MORPHINE SULFATE IV. WILL ASSESS PATIENT'S PAIN LEVEL ACCORDINGLY.
--- NOTE | 2019-04-07 22:20 | NUR ---
MS/RN NOTES: PATIENT IS SLEEPING, BUT EASILY AWAKEN WITH VERBAL STIMULI. PATIENT'S PAIN LEVEL DECREASED, MEDICATION WAS EFFECTIVE. WILL CONTINUE MONITORING PT ACCORDINGLY.
[2019-04-08] MEDS: MORPHINE SULFATE INJ 4 MG/ML DISP.SYRIN IM PRN ×3 (03:10→11:04)
--- NOTE | 2019-04-08 03:10 | NUR ---
MS/RN NOTES: PATIENT AWAKE AND COMPLAINING OF PAIN LEVEL OF 8 ON HER LEFT KNEE. PATIENT IS IN STABLE CONDITION, VITAL SIGNS WNL. ADMINISTERED 4MG MORPHINE SULFATE IV. WILL ASSESS PATIENT'S PAIN LEVEL AND MONITOR ACCORDINGLY.
--- NOTE | 2019-04-08 06:17 | NUR ---
MS/RN NOTES: PATIENT AWAKE AND ALERT IN BED. STATING SHE HAS PAIN LEVEL 8 ON HER LEFT KNEE. PATIENT IS IN STABLE CONDITION, VITAL SIGNS WNL. ADMINISTERED 4MG MORPHINE SULFATE IV. WILL ASSESS PATIENT'S PAIN LEVEL ACCORDINGLY.
--- NOTE | 2019-04-08 06:29 | NUR ---
MS/RN CLOSING NOTE: PATIENT IS AWAKE IN BED. ALERT & ORIENTED X 4. ON ROOM AIR. NO SIGNS OF ACUTE RESPIRATORY DISTRESS. NO COMPLAINS OF PAIN OR DISCOMFORT AT THIS TIME. IV ON LEFT FA #22G SALINE LOCK. PATIENT CALL LIGHT WITHIN REACH. SAFETY PRECAUTION KEPT IN PLACE. ALL DUE MEDS GIVEN ORDERED. ALL NURSING NEEDS MET AND PROVIDED. WILL ENDORSE TO DAY SHIFT NURSE FOR ERIN.
[2019-04-08 06:31] LABS: BASOPHILS % (AUTO) 0.2 % (0.0-2.0); EOSINOPHILS % (AUTO) 1.2 % (0.0-6.0); HEMATOCRIT 38 % (33-45); HEMOGLOBIN 13.2 g/dL (11.5-14.8); LYMPHOCYTES # (AUTO) 1.6 /CMM (0.8-4.8); LYMPHOCYTES % (AUTO) 20.9 % (20.0-44.0); MEAN CORPUSCULAR HGB CONC 35 g/dl (31.0-36.0); MEAN CORPUSCULAR VOLUME 94 fL (82-100); MONOCYTES # (AUTO) 0.9 /CMM (0.1-1.30); NEUTROPHILS # (AUTO) 5.3 /CMM (1.8-8.9); NEUTROPHILS % (AUTO) 66.7 % (43.0-81.0); PLATELET COUNT (AUTO) 170 /CMM (150-450); RED BLOOD CELL COUNT(AUTO) 4.02 MIL/uL (4.0-5.2); WHITE BLOOD COUNT (AUTO) 7.9 K/uL (4.3-11.0)
[2019-04-08 06:37] LABS: CALCIUM, SERUM 8.8 mg/dL (8.5-10.1); CREATININE 0.5 mg/dL (0.6-1.3); POTASSIUM 3.4 mmol/L (3.5-5.1)
[2019-04-08] MEDS ORDERED: POTASSIUM CHLORIDE 20 MEQ TAB.PRT.SR PO ONE (07:30)
--- NOTE | 2019-04-08 07:37 | NUR ---
MS RN OPENING NOTE PATIENT IN BED RESTING COMFORTABLY. PATIENT IN NO ACUTE DISTRESS. NO SOB NOTED. PATIENT BREATHING IS EVEN AND UNLABORED. PATIENT IN NO PAIN AT THIS TIME. NEEDS AND CONCERNS ADDRESSED AT THIS TIME. PATIENT BED IS LOCKED AND IN LOWEST POSITION. CALL LIGHT WITHIN REACH. WILL CONTINUE TO MONITOR.
[2019-04-08 08:00] VITALS: BP 133/70
[2019-04-08] MEDS: ASPIRIN 325 MG TABLET PO SCH (08:49)
[2019-04-08] MEDS: FAMOTIDINE (20 MG) 20 MG TABLET PO SCH (08:49)
--- NOTE | 2019-04-08 11:00 | NUR ---
MS RN NOTE DRESSING TO BE CHANGED BY MD ONLY. DRESSING DRY, CLEAN AND INTACT.
--- NOTE | 2019-04-08 12:57 | NUR ---
MS BRIM MOLDER NOTE PATIENT MEDICALLY STABLE FOR DISCHARGE. PATIENT IN NO ACUTE DISTRESS. NO SOB NOTED. PATIENT BREATHING IS EVEN AND UNLABORED. PATIENT IN NO PAIN AT THIS TIME. PATIENT VITAL SIGNS WNL. PATIENT SKIN ASSESSED NO NEW SKIN BREAKDOWN NOTED. MD CASILLAS CHANGED DRESSING. DRESSING IS DRY AND INTACT. PATIENT DC INSTRUCTIONS PROVIDED TO PATIENT AND DAUGHTER. PATIENT AND DAUGHTER VERBALIZED UNDERSTANDING. IV REMOVED. ID BAND REMOVED. PATIENT KEPT CLEAN, DRY, AND COMFORTABLE THROUGHOUT SHIFT. PATIENT NEEDS AND CONCERNS ADDRESSED. PATIENT BELONGINGS LIST SIGNED AND IN CHART. PATIENT HAS ALL BELONGINGS WITH HER. PATIENT IN WHEELCHAIR BACK TO [employer] CAR TO GO HOME. MD AWARE OF DISCHARGE.
[2019-04-09 13:40] LABS: *HGBFRC HEMOGLOBIN A2 2.1 % (1.8-3.2); *HGBFRC HEMOGLOBIN F 0.8 % (0.0-2.0)
== END 2019-04-08 13:15 | disposition home health service (06) | DRG 470 ==
LOC: DS 05:00 → MED 05:04
PROVIDERS: ADMIT Student in an Organized Health Care Education/Training Program; ATTEND Nurse Practitioner Acute Care
PROC: 0SRD0JZ Replacement of Left Knee Joint with Synthetic Substitute, Open Approach (ICD-10-PCS; principal; 2019-04-06)
DX: S83.282A Other tear of lateral meniscus, current injury, left knee, initial encounter (principal); M17.12 Unilateral primary osteoarthritis, left knee; N95.9 Unspecified menopausal and perimenopausal disorder; E83.42 Hypomagnesemia; M22.40 Chondromalacia patellae, unspecified knee; X58.XXXA Exposure to other specified factors, initial encounter; Y92.9 Unspecified place or not applicable; Z96.651 Presence of right artificial knee joint; E87.6 Hypokalemia; R73.9 Hyperglycemia, unspecified
CPT/HCPCS: 36415; 80048-TC; 80061-TC; 82962-TC; 83021; 83735-TC; 84100-TC; 84443-TC; 85025-TC; 85660; 86850-TC; 87081-TC; 88305-TC; 88311-TC; 97110-TC; 97116-TC; 97530-TC; 97760-TC; G0378; J0690; J2175; J2250; J2270; J2405; J3010; J3490; J7040; J7060

== ENCOUNTER 2019-07-09 11:03 | Outpatient (CLI) | payer BC | END 2019-07-09 23:59 | disposition home or self-care (01) | LOC: RAD 11:03 | PROVIDERS: ATTEND Family Medicine | DX: M25.462 Effusion, left knee (principal); M25.561 Pain in right knee; M25.512 Pain in left shoulder; M25.511 Pain in right shoulder; Z96.652 Presence of left artificial knee joint; Z96.651 Presence of right artificial knee joint | CPT/HCPCS: 73030-TC; 73562 ==

== ENCOUNTER 2020-02-28 08:11 | Emergency (ER) | payer BC ==
[~2020-02-28] VITALS: Ht 152.4 cm; Wt 72.6 kg
--- NOTE | 2020-02-28 08:31 | NUR ---
Patient awake alert non distress pleasant lady made aware plan of care .
[2020-02-28 08:58] VITALS: BP 142/81
--- NOTE | 2020-02-28 08:58 | NUR ---
Patient discharged to home in stable condition. Written and verbal after care instructions given. Patient verbalizes understanding of instruction.
== END 2020-02-28 08:58 | disposition home or self-care (01) ==
LOC: ER 08:11
DX: S93.492A Sprain of other ligament of left ankle, initial encounter (principal); Z98.890 Other specified postprocedural states; W01.0XXA Fall on same level from slipping, tripping and stumbling without subsequent striking against object, initial encounter; Y93.89 Activity, other specified; Y92.89 Other specified places as the place of occurrence of the external cause; Y99.8 Other external cause status
CPT/HCPCS: 73610-TC

== ENCOUNTER 2020-03-13 12:36 | Emergency (ER) | payer BC ==
[~2020-03-13] VITALS: Ht 154.9 cm; Wt 73.5 kg
--- NOTE | 2020-03-13 12:59 | NUR ---
PT IS ALSO STATES THAT SHE MIGHT HAVE UTI BECAUSE OF URINARY FREQUENCY.
--- NOTE | 2020-03-13 12:59 | NUR ---
BIBS FROM WORK TO ER BED 7. AAOX4. NOT IN RESP DISTRESS, BREATHING EVEN AND UNLABORED. AMBULATORY ON STEADY GAIT WITHOUT ASSIST. CAME IN FOR HEADACHE SINCE YESTERDAY. PER PT, SHE HAVE HER HEADACHE ON THE FRONTAL AREA. RATES IT 6/10 THROBBING. NO NUERO DEFICIT NOTED. WAS AT THE BEDSIDE FOR EVAL. AWAITING ORDERS
[2020-03-13] MEDS ORDERED: LORAZEPAM 1 MG TABLET ONE (13:13)
[2020-03-13] MEDS ORDERED: IBUPROFEN 600 MG TABLET ONE (13:13)
[2020-03-13] MEDS: IBUPROFEN 600 MG TABLET PO ONE (13:21)
[2020-03-13] MEDS: LORAZEPAM 1 MG TABLET PO ONE (13:21)
[2020-03-13 13:26] LABS: BILIRUBIN,URINE SMALL (NEGATIVE); BLOOD, URINE Moderate Ery/uL (NEGATIVE); COLOR,URINE Yellow (YELLOW); LEUKOCYTE ESTERASE ,URINE Large (NEGATIVE); NITRITE, URINE Negative (NEGATIVE); PROTEIN,URINE >=300 mg/dl (NEGATIVE); UGLUCOSE Negative (NEGATIVE)
[2020-03-13 13:55] LABS: BACTERIA,URINE 3+ /HPF (None Seen); SQUAMOUS EPITHELIAL CELL,UR Few /HPF (None Seen); WBC,URINE 51-80 /HPF (0-3)
--- NOTE | 2020-03-13 14:23 | NUR ---
Patient discharged to home in stable condition. Written and verbal after care instructions given. Patient verbalizes understanding of instruction. Pt ambulatory with a steady gait. Pt is going to be picked up by her
[2020-03-13 14:24] VITALS: BP 102/60
== END 2020-03-13 14:24 | disposition home or self-care (01) ==
LOC: ER 12:37
DX: N39.0 Urinary tract infection, site not specified (principal); R51.9 Headache, unspecified; I10 Essential (primary) hypertension; Z98.890 Other specified postprocedural states
CPT/HCPCS: 81000-TC; 87086-TC; 87186-TC

== ENCOUNTER 2020-03-25 11:10 | Outpatient (CLI) | payer BC ==
[2020-03-25 11:49] LABS: BILIRUBIN,URINE NEGATIVE (NEGATIVE); BLOOD, URINE TRACE-INTA Ery/uL (NEGATIVE); COLOR,URINE YELLOW (YELLOW); LEUKOCYTE ESTERASE ,URINE LARGE (NEGATIVE); NITRITE, URINE NEGATIVE (NEGATIVE); PROTEIN,URINE NEGATIVE (NEGATIVE); UGLUCOSE NEGATIVE (NEGATIVE); UROBILINOGEN,URINE 0.2 EU/dL (0.2)
[2020-03-25 11:51] LABS: BASOPHILS % (AUTO) 0.4 % (0.0-2.0); EOSINOPHILS % (AUTO) 0.5 % (0.0-6.0); HEMATOCRIT 37 % (33-45); HEMOGLOBIN 12.4 g/dL (11.5-14.8); LYMPHOCYTES # (AUTO) 2.3 /CMM (0.8-4.8); LYMPHOCYTES % (AUTO) 24.8 % (20.0-44.0); MEAN CORPUSCULAR HGB CONC 34 g/dl (31.0-36.0); MEAN CORPUSCULAR VOLUME 96 fL (82-100); MONOCYTES # (AUTO) 0.7 /CMM (0.1-1.30); MONOCYTES % (AUTO) 7.6 % (2.0-12.0); NEUTROPHILS # (AUTO) 6.3 /CMM (1.8-8.9); NEUTROPHILS % (AUTO) 66.7 % (43.0-81.0); PLATELET COUNT (AUTO) 384 /CMM (150-450); RED BLOOD CELL COUNT(AUTO) 3.84 MIL/uL (4.0-5.2); WHITE BLOOD COUNT (AUTO) 9.5 K/uL (4.3-11.0)
[2020-03-25 11:56] LABS: BACTERIA,URINE Moderate /HPF (None Seen); SQUAMOUS EPITHELIAL CELL,UR Few /HPF (None Seen); WBC,URINE TOO NUMEROUS TO COUN /HPF (0-3)
[2020-03-25 12:30] LABS: BILIRUBIN,TOTAL 0.4 mg/dL (0.2-1.0); CALCIUM, SERUM 9.1 mg/dL (8.5-10.1); CREATININE 0.6 mg/dL (0.6-1.3); POTASSIUM 3.4 mmol/L (3.5-5.1); TOTAL PROTEIN, SERUM 7.6 g/dL (6.4-8.2)
[2020-03-25 12:37] LABS: T4 (THYROXINE) 6.1 ug/dL (4.7-13.3); THYROID STIMULATING HORMONE 1.656 uIU/mL (0.358-3.74)
== END 2020-03-25 23:59 | disposition home or self-care (01) ==
LOC: LAB 11:10
PROVIDERS: ATTEND Family Medicine
DX: I10 Essential (primary) hypertension (principal); E55.9 Vitamin D deficiency, unspecified; B37.0 Candidal stomatitis; Z00.01 Encounter for general adult medical examination with abnormal findings
CPT/HCPCS: 36415; 80053-TC; 80061-TC; 81001; 82306; 84436-TC; 84443-TC; 85025-TC; 86803; 87086-TC

== ENCOUNTER 2020-04-26 09:46 | Emergency (ER) | payer BC ==
[~2020-04-26] VITALS: Ht 152.4 cm; Wt 68.9 kg
[2020-04-26 10:02] VITALS: BP 146/81
[2020-04-26] MEDS ORDERED: ACETAMINOPHEN 325 MG TABLET ONE (10:16)
[2020-04-26] MEDS ORDERED: ACETAMINOPHEN 325 MG TABLET PO ONE (10:30)
--- NOTE | 2020-04-26 11:08 | NUR ---
Patient discharged to home in stable condition. Written and verbal after care instructions given. Patient verbalizes understanding of instruction.
== END 2020-04-26 11:08 | disposition home or self-care (01) ==
LOC: ER 09:52
DX: U07.1 COVID-19 (principal); R51.9 Headache, unspecified; I10 Essential (primary) hypertension
CPT/HCPCS: 99283; C9803; U0003

== ENCOUNTER 2020-05-04 10:26 | Inpatient (IN) | payer BC ==
[~2020-05-04] VITALS: Ht 152.4 cm; Wt 79.4 kg
--- NOTE | 2020-05-04 11:15 | NUR ---
BIB SELF FROM HOME, C/O SOB & CHEST TIGHTNESS, + COVID ON 04/27/20. VS CHECKED. IV ACCESS STARTED BLOOD DRAW DONE. SENT TO LAB
[2020-05-04] MEDS ORDERED: DEXAMETHASONE SOD PHOSPHATE 10 MG/ML VIAL IV ONE (11:30)
[2020-05-04] MEDS ORDERED: DEXAMETHASONE SOD PHOSPHATE 10 MG/ML VIAL ONE (11:40)
--- NOTE | 2020-05-04 11:43 | NUR ---
urine collected sent to lab
[2020-05-04] MEDS ORDERED: METH4TAB16 PO (11:44)
[2020-05-04] MEDS ORDERED: AZIT250T13 PO (11:44)
[2020-05-04] MEDS ORDERED: ALBU18HF2 IH (11:44)
[2020-05-04 11:58] LABS: BILIRUBIN,URINE SMALL (NEGATIVE); COLOR,URINE YELLOW (YELLOW); LEUKOCYTE ESTERASE ,URINE Negative (NEGATIVE); NITRITE, URINE Negative (NEGATIVE); PH,URINE 5.5 (5.0-8.0); PROTEIN,URINE Trace mg/dl (NEGATIVE); UGLUCOSE 250 MG/DL mg/dL (NEGATIVE); UROBILINOGEN,URINE 0.2 EU/dL (0.2)
[2020-05-04 12:00] LABS: BACTERIA,URINE Few /HPF (None Seen); SQUAMOUS EPITHELIAL CELL,UR Few /HPF (None Seen)
[2020-05-04 12:22] LABS: BASOPHILS % (AUTO) 0.2 % (0.0-2.0); HEMATOCRIT 40 % (33-45); HEMOGLOBIN 13.8 g/dL (11.5-14.8); LYMPHOCYTES # (AUTO) 0.4 /CMM (0.8-4.8); LYMPHOCYTES % (AUTO) 4.2 % (20.0-44.0); MEAN CORPUSCULAR HGB CONC 35 g/dl (31.0-36.0); MEAN CORPUSCULAR VOLUME 95 fL (82-100); MONOCYTES # (AUTO) 0.5 /CMM (0.1-1.30); MONOCYTES % (AUTO) 5.6 % (2.0-12.0); NEUTROPHILS # (AUTO) 7.9 /CMM (1.8-8.9); PLATELET COUNT (AUTO) 423 /CMM (150-450); RED BLOOD CELL COUNT(AUTO) 4.18 MIL/uL (4.0-5.2); WHITE BLOOD COUNT (AUTO) 8.8 K/uL (4.3-11.0)
[2020-05-04 12:27] LABS: CALCIUM, SERUM 9.2 mg/dL (8.5-10.1); CARBON DIOXIDE 22 mmol/L (21-32); CHLORIDE 97 mmol/L (98-107); CREATININE 0.9 mg/dL (0.6-1.3); GLUCOSE 330 mg/dL (74-106); POTASSIUM 3.2 mmol/L (3.5-5.1); SODIUM SERUM 135 mmol/L (136-145); UREA NITROGEN, BLOOD 24 mg/dL (7-18)
[2020-05-04] MEDS ORDERED: MAGNESIUM HYDROXIDE 30 ML UDC PO PRN (12:30)
[2020-05-04] MEDS ORDERED: Z GUARD REMEDY 2 OZ OINT TP PRN (12:30)
[2020-05-04] MEDS ORDERED: ZOLPIDEM TARTRATE 5 MG TABLET PO PRN (12:30)
[2020-05-04] MEDS ORDERED: MAG HYDROX/AL HYDROX/SIMETH 30 ML UDC PO PRN (12:30)
[2020-05-04] MEDS ORDERED: ONDANSETRON HCL/PF 4 MG/2 ML VIAL IVP PRN (12:30)
[2020-05-04] MEDS ORDERED: ALBUTEROL 17GM INHALER IH PRN (12:30)
--- NOTE | 2020-05-04 12:34 | NUR ---
report given to christos at ms 2
[2020-05-04 12:40] LABS: ALANINE AMINOTRANSFERASE 75 U/L (12-78); ALBUMIN 2.5 g/dL (3.4-5.0); ALKALINE PHOSPHATASE 97 U/L (46-116); ASPARTATE AMINOTRANSFERASE 58 U/L (15-37); B-TYPE NATRIURETIC PEPTIDE 94 PG/ML (0-125); BILIRUBIN,TOTAL 0.6 mg/dL (0.2-1.0)
--- NOTE | 2020-05-04 12:40 | NUR ---
BED 205
[2020-05-04 13:00] VITALS: BP 143/73
--- NOTE | 2020-05-04 13:00 | NUR ---
RN NOTES RECEIVED PATIENT FROM ER NURSE, VIA TALIA. ORIENTED PATIENT TO ROOM, UNIT AND CALL LIGHT. RECEIVED PATIENT ON 6L/MIN VIA NC. AMBULATORY WITH STEADY GAIT. LEFT AC # 18 INTACT AND PATENT. ON TELEMONITORING SR. DENIES ANY C/O PAIN NOR DISCOMFORT AT THIS TIME. BED IN LOWEST POSITION, LOCKED. BED ALARM ON. CALL LIGHT WITHIN REACH. ABLE TO VERBALIZE NEEDS. FREQUENT VISUAL CHECK DONE.
--- NOTE | 2020-05-04 13:12 | NUR ---
transferred to room 205
[2020-05-04 13:42] LABS: D-DIMER 0.92 mg/L(FEU (0.17-0.50)
[2020-05-04 14:07] LABS: CREATINE KINASE, TOTAL 42 U/L (26-192); FERRITIN 386 ng/mL (8-388)
[2020-05-04] MEDS ORDERED: AZITHROMYCIN 250 MG TABLET PO SCH (14:30)
[2020-05-04] MEDS ORDERED: POTASSIUM CHLORIDE 20 MEQ TAB.PRT.SR PO ONE (14:30)
[2020-05-04] MEDS: ACETAMINOPHEN 325 MG TABLET PO PRN (15:47)
[2020-05-04] MEDS: ENOXAPARIN SODIUM 40 MG/0.4 ML DISP.SYRIN SQ SCH (15:47)
[2020-05-04] MEDS: AZITHROMYCIN 250 MG TABLET PO SCH (16:30)
[2020-05-04 16:56] LABS: BILIRUBIN,DIRECT 0.2 mg/dL (0.0-0.2)
[2020-05-04] MEDS ORDERED: REMDESIVIR (CHARGED) 200 MG, *LOADING DOSE 1 EA in IV NS 0.9% 210 ML IV ONE (17:00)
--- NOTE | 2020-05-04 17:00 | NUR ---
RN NOTES OBSERVED PATIENT SOB ON EXERTION AND USES O2 PRN.
[2020-05-04 17:02] LABS: C-REACTIVE PROTEIN 48.6 mg/dL (0.0-0.9)
--- NOTE | 2020-05-04 19:30 | NUR ---
RN NOTES PATIENT RESTING COMFORTABLY IN BED. TITRATED PATIENT 02 NOW ROOM AIR WITH SPO2 93%. AMBULATES INSIDE ROOM WITH STEADY GAIT. LEFT AC # 18 AND #22 SL INTACT AND PATENT. DENIES ANY C/O PAIN NOR DISCOMFORT AT THIS TIME. BED IN LOWEST POSITION, LOCKED. BED ALARM ON. CALL LIGHT WITHIN REACH. ABLE TO VERBALIZE NEEDS. IN NO APPARENT DISTRESS.
--- NOTE | 2020-05-04 19:45 | NUR ---
RN NOTES OBSERVED PATIENT ON ROOM AIRE WITH SPO2 OF 93%.
[2020-05-04 20:00] VITALS: BP 141/78
[2020-05-05] VITALS (7 sets, daily range): BP systolic 120–140; BP diastolic 67–89
[2020-05-05] MEDS: ACETAMINOPHEN 325 MG TABLET PO PRN (00:32)
[2020-05-05 07:14] LABS: HEMATOCRIT 37 % (33-45); HEMOGLOBIN 12.5 g/dL (11.5-14.8); LYMPHOCYTES # (AUTO) 0.7 /CMM (0.8-4.8); LYMPHOCYTES % (AUTO) 7.5 % (20.0-44.0); MEAN CORPUSCULAR HGB CONC 34 g/dl (31.0-36.0); MEAN CORPUSCULAR VOLUME 94 fL (82-100); MONOCYTES # (AUTO) 0.5 /CMM (0.1-1.30); MONOCYTES % (AUTO) 5.6 % (2.0-12.0); NEUTROPHILS # (AUTO) 8.1 /CMM (1.8-8.9); NEUTROPHILS % (AUTO) 86.9 % (43.0-81.0); PLATELET COUNT (AUTO) 424 /CMM (150-450); RED BLOOD CELL COUNT(AUTO) 3.87 MIL/uL (4.0-5.2); WHITE BLOOD COUNT (AUTO) 9.4 K/uL (4.3-11.0)
--- NOTE | 2020-05-05 07:27 | NUR ---
RN CLOSING NOTES Pt on bed, no new unusalities noted. All nursing needs attended, due meds given as ordered. Kept on bed clean, dry and comfortable. On fall and aspiration precautions. Endorsed.
[2020-05-05 07:45] LABS: ALBUMIN 2.3 g/dL (3.4-5.0); BILIRUBIN,DIRECT 0.2 mg/dL (0.0-0.2); BILIRUBIN,TOTAL 0.4 mg/dL (0.2-1.0); CALCIUM, SERUM 8.9 mg/dL (8.5-10.1); CREATININE 0.6 mg/dL (0.6-1.3); MAGNESIUM 2.2 mg/dL (1.8-2.4); POTASSIUM 4.2 mmol/L (3.5-5.1); TOTAL PROTEIN, SERUM 7.7 g/dL (6.4-8.2)
[2020-05-05] MEDS: HYDROCODONE/APAP 5/325MG TABLET PO PRN ×2 (08:30→20:14)
[2020-05-05] MEDS: DEXAMETHASONE SOD PHOSPHATE 10 MG/ML VIAL IV SCH (08:31)
[2020-05-05] MEDS: ENOXAPARIN SODIUM 40 MG/0.4 ML DISP.SYRIN SQ SCH (08:33)
--- NOTE | 2020-05-05 08:35 | NUR ---
PT C/O OF ACHING GENERALIZED PAIN OF 6/10. PT NOTED WITH FACIAL GRIMACE AND MOANING. VS WNL. PER PT REQUEST NORCO 5-325MG PO Q4HR PRN ADMINISTERED AT THIS TIME PER ORDER. WILL CONTINUE TO MONITOR
--- NOTE | 2020-05-05 10:16 | NUR ---
RN OPENING NOTES RECEIVED PT AWAKE AT THIS TIME. AO X4L. NO SOB NOTED, NO S/S OF ANY ACUTE DISTRESS NOTED. NO C/O PAIN NOTED AT THIS TIME. RESPIRATIONS ARE EVEN AND UNLABORED WITH EQUAL RISE AND FALL IN CHEST. PT STABLE ON RA. IV ACCESS NOTED IN LAC G#18 AND LEFT HAND G#22, BOTH INTACT, PATENT AND FLUSHING WELL. SAFETY PRECAUTION IN PLACE AND MAINTAINED AT ALL TIMES. BED IN LOWEST LOCKED POSITION, HOB ELEVATED, SIDE RAILS UP X 2, CALL LIGHT AND TABLE WITHIN REACH. WILL CONTINUE TO MONITOR
--- NOTE | 2020-05-05 10:20 | NUR ---
PT ON EXTERNAL STEAM TANK OPERATOR READING SR 88. WILL CONTINUE TO MONITOR
--- NOTE | 2020-05-05 12:25 | NUR ---
PT SWAB FOR COVID AT THIS TIME IN NARE. PT TOLERATED WELL. SPECIMEN TAKEN TO LAB. WILL CONTINUE TO MONITOR
[2020-05-05] MEDS: AZITHROMYCIN 250 MG TABLET PO SCH (16:26)
[2020-05-05] MEDS: REMDESIVIR (CHARGED) 100 MG in IV NS 0.9% 230 ML IV SCH (17:19)
--- NOTE | 2020-05-05 18:00 | NUR ---
CONSENT FOR BLOOD AND BLOOD PRODUCTS SIGNED BY PT AND FILED IN CHART. WILL CONTINUE WITH PLAN OF CARE
--- NOTE | 2020-05-05 18:57 | NUR ---
CONVALESCENT PLASMA PICKED UP FROM LAB, VERIFIED BY TWO NURSES. NO CLOTS, NO LEAKAGE NOTED. PT EDUCATION PROVIDED TO REPORT ANY ADVERSE SIGNS OF TRANSFUSION REACTION: FEVER, CHILLS, BACK PAIN, ITCHINESS. PT VERBALIZED UNDERSTANDING. PRE TRANSFUSION VS, BP 132/74, HR 89, RR 20, TEMP 98.0, SPO2 95%. TRANSFUSION STARTED AT THIS TIME. WILL CONTINUE TO MONITOR
--- NOTE | 2020-05-05 19:00 | NUR ---
GLENIS ([phone]), PT'S DAUGHTER CALLED AND WAS UPDATED. WILL ENDORSE TO NURSE LIAISON NURSE
--- NOTE | 2020-05-05 19:10 | NUR ---
PT ONGOING CONVALESCENT PLASMA TRANSFUSION. PT EDUCATION PROVIDED TO REPORT ANY ADVERSE SIGNS OF TRANSFUSION REACTION: FEVER, CHILLS, BACK PAIN, ITCHINESS. PT VERBALIZED UNDERSTANDING. PRE TRANSFUSION VS, BP 128/80, HR 69, RR 20, TEMP 98.2, SPO2 96%. WILL CONTINUE TO MONITOR
--- NOTE | 2020-05-05 19:42 | NUR ---
PT S/P CONVALESCENT PLASMA TRANSFUSION AT THIS TIME. NO ADVERSE SIGNS OF TRANSFUSION REACTION NOTED, PT REMAINS AFEBRILE, NO CHILLS, NO BACK PAIN, NO ITCHINESS. VS, BP 128/80, HR 69, RR 20, TEMP 98.2, SPO2 96%. WILL CONTINUE TO MONITOR
--- NOTE | 2020-05-05 19:45 | NUR ---
RN CLOSING NOTES PT AWAKE IN BED AT THIS TIME. PT REMAINED STABLE THROUGHOUT SHIFT. ALL CARE, NEED, MEDICATIONS AND TREATMENT ADMINISTERED ANTICIPATED PER ORDER. PT MOTIVATED TO SELF CARE. SAFETY PRECAUTION IN PLACE AND MAINTAINED AT ALL TIMES. BED IN LOWEST LOCKED POSITION, HOB ELEVATED, SIDE RAILS UP X 2, CALL LIGHT AND TABLE WITHIN REACH. ENDORSED TO RICE FARMWORKER NURSE FOR ERIN
--- NOTE | 2020-05-05 21:44 | NUR ---
[employer]NATIONAL SALES MANAGER OPENING NOTE Patient awake in bed, A/O x4, ambulatory with BRP. Breathing even, unlabored, on 4 LPM NC, satting at 93%. Tele monitor sinus rhythm. No acute distress or SOB noted. Gag reflex intact. Skin warm, pink, dry, appropriate for ethnicity, intact. IV site LAC 18g, saline locked, patent and intact. IV site L hand 22g, saline locked, patent and intact. Patient voiding without difficulty. Urine output clear, yellow. Bed in low position, wheels locked, side rails up x2, call light within reach.
[2020-05-06] VITALS: BP 120/73
[2020-05-06 04:00] VITALS: BP 126/78
--- NOTE | 2020-05-06 06:07 | NUR ---
CLASSIFICATION ANALYST CLOSING NOTE Patient awake in bed, A/O x4. Breathing even, unlabored, on 4 LPM NC, satting at 95%. Afebrile. Patient denies pain, nausea, vomiting. Tele monitor sinus rhythm/sinus luis 60's. No acute distress or SOB noted. IV site LAC 18g, saline locked, patent and intact. IV site L hand 22g, saline locked, patent and intact. Patient voiding without difficulty. Urine output clear, yellow. All needs met. Bed in low position, wheels locked, side rails up x2, call light within reach.
[2020-05-06 07:01] LABS: BASOPHILS % (AUTO) 0.1 % (0.0-2.0); EOSINOPHILS % (AUTO) 0.1 % (0.0-6.0); HEMATOCRIT 34 % (33-45); HEMOGLOBIN 11.8 g/dL (11.5-14.8); LYMPHOCYTES # (AUTO) 0.9 /CMM (0.8-4.8); MEAN CORPUSCULAR HGB CONC 34 g/dl (31.0-36.0); MEAN CORPUSCULAR VOLUME 95 fL (82-100); MONOCYTES # (AUTO) 0.7 /CMM (0.1-1.30); MONOCYTES % (AUTO) 8.7 % (2.0-12.0); NEUTROPHILS # (AUTO) 6.6 /CMM (1.8-8.9); NEUTROPHILS % (AUTO) 80.1 % (43.0-81.0); PLATELET COUNT (AUTO) 428 /CMM (150-450); RED BLOOD CELL COUNT(AUTO) 3.64 MIL/uL (4.0-5.2); WHITE BLOOD COUNT (AUTO) 8.2 K/uL (4.3-11.0)
[2020-05-06 07:14] LABS: ALBUMIN 2.3 g/dL (3.4-5.0); BILIRUBIN,DIRECT 0.1 mg/dL (0.0-0.2); BILIRUBIN,TOTAL 0.3 mg/dL (0.2-1.0); CALCIUM, SERUM 8.8 mg/dL (8.5-10.1); CREATININE 0.6 mg/dL (0.6-1.3); POTASSIUM 3.9 mmol/L (3.5-5.1); TOTAL PROTEIN, SERUM 7.2 g/dL (6.4-8.2)
[2020-05-06 08:00] VITALS: BP 121/68
[2020-05-06] MEDS: DEXAMETHASONE SOD PHOSPHATE 10 MG/ML VIAL IV SCH (08:07)
[2020-05-06] MEDS: ENOXAPARIN SODIUM 40 MG/0.4 ML DISP.SYRIN SQ SCH (08:09)
[2020-05-06] MEDS: ACETAMINOPHEN 325 MG TABLET PO PRN (11:02)
[2020-05-06 12:00] VITALS: BP 130/83
[2020-05-06] MEDS: AZITHROMYCIN 250 MG TABLET PO SCH (15:43)
[2020-05-06 16:00] VITALS: BP 132/91
[2020-05-06] MEDS: REMDESIVIR (CHARGED) 100 MG in IV NS 0.9% 230 ML IV SCH (16:01)
--- NOTE | 2020-05-06 18:23 | NUR ---
ASSOCIATE FIELD SERVICE ENGINEER CLOSING NOTES PATIENT RESTING COMFORTABLY IN BED, AWAKE, A/O X4. PATIENT IN STABLE CONDITION. ON RA BREATHING EVEN AND UNLABORED WITH NO SIGNS OF ACUTE RESPIRATORY DISTRESS NOTED. SATURATING AT 94-95%. NO S/S OF PAIN OR DISCOMFORT AT THIS TIME. ON TELE MONITOR READING SNR WITH HR IN THE LOW 60'S. PT AMBULATORY WITH BRP. IV TO LT AC#18G AND LT HAND #22 G, PATENT AND INTACT; PT ON REMDESIVIR DOSE 2 OF 4 GIVEN. KEPT SL. BED KEPT AT LOW POSITION AND LOCKED WITH SIDE RAILS UPX2 AND CALL LIGHT WITH IN REACH. ALL SAFETY MEASURES MAINTAINED. WILL ENDORSE TO ONCOMING SHIFT.
--- NOTE | 2020-05-06 19:35 | NUR ---
TELE/RN OPENING NOTES: RECEIVED PATIENT RESTING COMFORTABLY IN BED, AWAKE, A/OX4. IN STABLE CONDITION. ON RA, BREATHING EVEN AND UNLABORED WITH NO SIGNS OF ACUTE RESPIRATORY DISTRESS NOTED. SATURATING WELL AT 94-95%. NO C/O PAIN OR DISCOMFORT AT THIS TIME. ON TELE MONITOR READING SNR WITH HR IN THE LOW 60'S. AMBULATORY WITH BRP. IV ACCESS ON THE LEFT AC#18G AND LEFT HAND #22 G, PATENT AND INTACT, SL. BED KEPT AT LOW POSITION AND LOCKED WITH SIDE RAILS UPX2 AND CALL LIGHT WITH IN REACH. ALL SAFETY MEASURES MAINTAINED. WILL CONTINUE TO MONITOR ACCORDINGLY.
[2020-05-06 20:00] VITALS: BP 144/86
[2020-05-07] VITALS: BP 139/84
[2020-05-07] MEDS: ACETAMINOPHEN 325 MG TABLET PO PRN ×5 (01:15→23:16)
[2020-05-07 04:00] VITALS: BP 131/70
--- NOTE | 2020-05-07 07:38 | NUR ---
TELE/RN CLOSING NOTES: TOLERATED RA THROUGHOUT THE SHIFT 94%. NO SIGNIFICANT CHANGES IN CONDITION. ALL NURSING NEEDS MET AND RENDERED. SAFETY MEASURES IN PLACE. ENDORSED TO DAY SHIFT FOR ERIN.
[2020-05-07 07:41] LABS: BASOPHILS % (AUTO) 0.1 % (0.0-2.0); EOSINOPHILS % (AUTO) 0.4 % (0.0-6.0); HEMATOCRIT 35 % (33-45); HEMOGLOBIN 12.1 g/dL (11.5-14.8); LYMPHOCYTES # (AUTO) 1.5 /CMM (0.8-4.8); MEAN CORPUSCULAR HGB CONC 35 g/dl (31.0-36.0); MEAN CORPUSCULAR VOLUME 94 fL (82-100); MONOCYTES # (AUTO) 0.8 /CMM (0.1-1.30); MONOCYTES % (AUTO) 12.6 % (2.0-12.0); NEUTROPHILS # (AUTO) 3.9 /CMM (1.8-8.9); NEUTROPHILS % (AUTO) 62.9 % (43.0-81.0); PLATELET COUNT (AUTO) 460 /CMM (150-450); RED BLOOD CELL COUNT(AUTO) 3.71 MIL/uL (4.0-5.2); WHITE BLOOD COUNT (AUTO) 6.2 K/uL (4.3-11.0)
[2020-05-07 08:00] VITALS: BP 125/73
--- NOTE | 2020-05-07 08:00 | NUR ---
RN Opening note Received patient in bed, AO x 4 able to responds all stimuli, Pt denies pain or distress. Skin is warm to touch keep clean/dry intact IV site, respiratory even and unlabored on room air O2sat 94%. Kept locked bed with elevated HOB for aspiration precaution and ensure airway and lowest bed foe safety. Call light within reach, will continue to monitor.
[2020-05-07 08:15] LABS: LYMPHOCYTES % (MANUAL) 23 % (16-48); MONOCYTES % (MANUAL) 10 % (0-11.0); MYELOCYTES % 4 % (0-0); NEUTROPHILS % (MANUAL) 63 (42-76)
[2020-05-07] MEDS: DEXAMETHASONE SOD PHOSPHATE 10 MG/ML VIAL IV SCH (08:21)
[2020-05-07] MEDS: ENOXAPARIN SODIUM 40 MG/0.4 ML DISP.SYRIN SQ SCH (08:24)
[2020-05-07 09:32] LABS: ALBUMIN 2.5 g/dL (3.4-5.0); BILIRUBIN,DIRECT 0.1 mg/dL (0.0-0.2); BILIRUBIN,TOTAL 0.3 mg/dL (0.2-1.0); CREATININE 0.6 mg/dL (0.6-1.3); POTASSIUM 3.7 mmol/L (3.5-5.1); TOTAL PROTEIN, SERUM 7.3 g/dL (6.4-8.2)
[2020-05-07 12:00] VITALS: BP 134/85
[2020-05-07 16:00] VITALS: BP 122/87
[2020-05-07] MEDS: REMDESIVIR (CHARGED) 100 MG in IV NS 0.9% 230 ML IV SCH (16:15)
[2020-05-07] MEDS: AZITHROMYCIN 250 MG TABLET PO SCH (16:15)
--- NOTE | 2020-05-07 18:30 | NUR ---
RN closing Patient in bed resting, does no appears pain or discomfort. Skin is warm to touch keep clean/dry, intact site with SL. Respiratory even and unlabored with oxygen at 5LPM O2sat 94%. Kept elevated HOB for ensure air way and aspiration precaution and lowest bed for safety. Call light within reach, will endorse date night sitter.
--- NOTE | 2020-05-07 19:00 | NUR ---
TELE/RN OPENING NOTES: RECEIVED PATIENT A/OX4, RESTING COMFORTABLY IN BED, AWAKE, A/OX4. IN STABLE CONDITION. ON RA, BREATHING EVEN AND UNLABORED WITH NO SIGNS OF ACUTE RESPIRATORY DISTRESS NOTED. SATURATING WELL AT 95%. NO C/O PAIN OR DISCOMFORT AT THIS TIME. ON TELE MONITOR READING SNR WITH HR IN THE LOW 60'S. AMBULATORY WITH BRP. IV ACCESS ON THE LEFT AC#18G AND LEFT HAND #22 G, PATENT AND INTACT, SL. BED KEPT AT LOW POSITION AND LOCKED WITH SIDE RAILS UPX2 AND CALL LIGHT WITH IN REACH. ALL SAFETY MEASURES MAINTAINED. WILL CONTINUE TO MONITOR ACCORDINGLY.
[2020-05-07 20:00] VITALS: BP 119/79
[2020-05-08] VITALS: BP 128/79
[2020-05-08 04:00] VITALS: BP 118/77
[2020-05-08 07:11] LABS: BASOPHILS % (AUTO) 0.1 % (0.0-2.0); EOSINOPHILS % (AUTO) 0.5 % (0.0-6.0); HEMATOCRIT 34 % (33-45); HEMOGLOBIN 12.2 g/dL (11.5-14.8); LYMPHOCYTES # (AUTO) 1.8 /CMM (0.8-4.8); LYMPHOCYTES % (AUTO) 28.5 % (20.0-44.0); MEAN CORPUSCULAR HGB CONC 36 g/dl (31.0-36.0); MEAN CORPUSCULAR VOLUME 94 fL (82-100); MONOCYTES # (AUTO) 0.7 /CMM (0.1-1.30); MONOCYTES % (AUTO) 11.5 % (2.0-12.0); NEUTROPHILS # (AUTO) 3.8 /CMM (1.8-8.9); NEUTROPHILS % (AUTO) 59.4 % (43.0-81.0); PLATELET COUNT (AUTO) 501 /CMM (150-450); RED BLOOD CELL COUNT(AUTO) 3.67 MIL/uL (4.0-5.2); WHITE BLOOD COUNT (AUTO) 6.4 K/uL (4.3-11.0)
--- NOTE | 2020-05-08 07:15 | NUR ---
RN Note Patient received. Patient is noted in bed, awake, alert and oriented x4. Breathing even and non labored. Patient continues on room air with no acute distress noted or shortness of breath. Skin is noted intact with IV site to L hand 22G noted patent and intact. Safety measures in place with bed in lowest position and locked. all needs attended to promptly. Will continue plan of care as ordered.
[2020-05-08 07:50] LABS: ALBUMIN 2.4 g/dL (3.4-5.0); BILIRUBIN,DIRECT 0.1 mg/dL (0.0-0.2); BILIRUBIN,TOTAL 0.3 mg/dL (0.2-1.0); CALCIUM, SERUM 8.3 mg/dL (8.5-10.1); CREATININE 0.5 mg/dL (0.6-1.3); POTASSIUM 3.5 mmol/L (3.5-5.1); TOTAL PROTEIN, SERUM 6.8 g/dL (6.4-8.2)
[2020-05-08 08:00] VITALS: BP 120/71
--- NOTE | 2020-05-08 08:00 | NUR ---
TELE/RN CLOSING NOTES: PATIENT REMAINS A/OX4, IN STABLE CONDITION. ON RA, BREATHING EVEN AND UNLABORED WITH NO SIGNS OF ACUTE RESPIRATORY DISTRESS NOTED. SATURATING WELL AT 95% ON ROOM AIR. ANTICIPATING D/C WHEN LAST DOSE REMDESIVIR GIVEN. NO C/O PAIN OR DISCOMFORT AT THIS TIME. BED KEPT AT LOW POSITION AND LOCKED WITH SIDE RAILS UPX2 AND CALL LIGHT WITH IN REACH. ALL SAFETY MEASURES MAINTAINED. ALL NURSING NEEDS MET AND RENDERED. ENDORSED TO DAY SHIFT FOR ERIN.
[2020-05-08] MEDS: DEXAMETHASONE SOD PHOSPHATE 10 MG/ML VIAL IV SCH (09:18)
[2020-05-08] MEDS: ENOXAPARIN SODIUM 40 MG/0.4 ML DISP.SYRIN SQ SCH (09:20)
[2020-05-08] MEDS ORDERED: PRED20TA PO (09:56)
[2020-05-08 12:00] VITALS: BP 117/69
[2020-05-08] MEDS: ACETAMINOPHEN 325 MG TABLET PO PRN (13:14)
[2020-05-08 16:00] VITALS: BP 117/69
[2020-05-08] MEDS: REMDESIVIR (CHARGED) 100 MG in IV NS 0.9% 230 ML IV SCH (17:36)
--- NOTE | 2020-05-08 18:50 | NUR ---
RN NOTES PATIENT FOR DISCHARGE. DISCHARGE PACKET/EDUCATION/TEACHINGS GIVEN TO PATIENT. ALERT AND ORIENTED X4. DENIES ANY C/O PAIN NOR DISCOMFORT AT THIS TIME.NO S/S OF RESPIRATORY DISTRESS. ZOFRAN 4 MG TAB PO PRN Q 6 HR FOR N&V CALLED IN TO [facility] [phone]. IV ACCESS REMOVED WITH CATHETER TIP INTACT. ALL BELONGS ACCOUNTED FOR. PATIENT LEFT IN STABLE CONDITION.
--- NOTE | 2020-05-08 19:50 | NUR ---
patient ride arrvied. patient escorted down to parking lot and left in no apparent distress on room air in private vehicle with friends/family with her belongings. .
== END 2020-05-08 18:50 | disposition home or self-care (01) | DRG 177 ==
LOC: ER 10:27 → TELE2 12:53
PROVIDERS: ADMIT Family Medicine; ATTEND Family Medicine
PROC: XW033E5 Introduction of Remdesivir Anti-infective into Peripheral Vein, Percutaneous Approach, New Technology Group 5 (ICD-10-PCS; principal; 2020-05-04)
PROC: 30233N1 Transfusion of Nonautologous Red Blood Cells into Peripheral Vein, Percutaneous Approach (ICD-10-PCS; 2020-05-05)
DX: U07.1 COVID-19 (principal); J96.01 Acute respiratory failure with hypoxia; J12.89 Other viral pneumonia; N17.0 Acute kidney failure with tubular necrosis; E44.0 Moderate protein-calorie malnutrition; E87.1 Hypo-osmolality and hyponatremia; E87.2 Acidosis; E86.1 Hypovolemia; I10 Essential (primary) hypertension; E87.6 Hypokalemia; E88.09 Other disorders of plasma-protein metabolism, not elsewhere classified; R73.9 Hyperglycemia, unspecified; Z68.34 Body mass index [BMI] 34.0-34.9, adult; R74.01 Elevation of levels of liver transaminase levels
CPT/HCPCS: 36415; 71045-TC; 80048-TC; 80053-TC; 80061-TC; 80076-TC; 81001; 82248-TC; 82550-TC; 82728-TC; 83605-TC; 83615-TC; 83735-TC; 83880; 84100-TC; 84484-TC; 85025-TC; 85378-TC; 85610-TC; 85730-TC; 86140-TC; 86850-TC; 87040-TC; 87081-TC; 87086-TC; 87186-TC; A4216; G0378; J1100; J1650; J2405; J7050; J7060; P9017-BL; U0003

== ENCOUNTER 2020-07-26 12:34 | Outpatient (CLI) | payer BC ==
[~2020-07-26 12:34] MED LIST changes: +ALBU18HF2 IH; +AZIT250T13 PO; -OXYC-454 PO; +PRED20TA PO
[2020-07-26 13:25] LABS: BASOPHILS % (AUTO) 0.5 % (0.0-2.0); EOSINOPHILS % (AUTO) 2.8 % (0.0-6.0); HEMATOCRIT 38 % (33-45); HEMOGLOBIN 12.9 g/dL (11.5-14.8); LYMPHOCYTES # (AUTO) 1.8 /CMM (0.8-4.8); LYMPHOCYTES % (AUTO) 36.1 % (20.0-44.0); MEAN CORPUSCULAR HGB CONC 34 g/dl (31.0-36.0); MEAN CORPUSCULAR VOLUME 92 fL (82-100); MONOCYTES # (AUTO) 0.4 /CMM (0.1-1.30); MONOCYTES % (AUTO) 8.4 % (2.0-12.0); NEUTROPHILS # (AUTO) 2.5 /CMM (1.8-8.9); NEUTROPHILS % (AUTO) 52.2 % (43.0-81.0); PLATELET COUNT (AUTO) 173 /CMM (150-450); RED BLOOD CELL COUNT(AUTO) 4.19 MIL/uL (4.0-5.2); WHITE BLOOD COUNT (AUTO) 4.9 K/uL (4.3-11.0)
[2020-07-26 13:33] LABS: BILIRUBIN,URINE NEGATIVE (NEGATIVE); COLOR,URINE YELLOW (YELLOW); LEUKOCYTE ESTERASE ,URINE SMALL (NEGATIVE); NITRITE, URINE NEGATIVE (NEGATIVE); PROTEIN,URINE NEGATIVE (NEGATIVE); UGLUCOSE NEGATIVE (NEGATIVE); UROBILINOGEN,URINE 0.2 EU/dL (0.2)
[2020-07-26 13:40] LABS: ALBUMIN 3.6 g/dL (3.4-5.0); BILIRUBIN,TOTAL 0.6 mg/dL (0.2-1.0); CALCIUM, SERUM 9.4 mg/dL (8.5-10.1); CREATININE 0.5 mg/dL (0.6-1.3); POTASSIUM 3.6 mmol/L (3.5-5.1); TOTAL PROTEIN, SERUM 7.5 g/dL (6.4-8.2)
[2020-07-26 13:47] LABS: THYROID STIMULATING HORMONE 1.07 uIU/mL (0.358-3.74)
[2020-07-26 14:33] LABS: BACTERIA,URINE 2+ /HPF (None Seen); RBC,URINE 0-2 /HPF (0-2); SQUAMOUS EPITHELIAL CELL,UR Few /HPF (None Seen); URINE AMORPHOUS URATE Few /HPF (None Seen); WBC,URINE 21-50 /HPF (0-3)
== END 2020-07-26 23:59 | disposition home or self-care (01) ==
LOC: LAB 12:34
PROVIDERS: ATTEND Family Medicine
DX: M25.50 Pain in unspecified joint (principal)
CPT/HCPCS: 36415; 80053-TC; 80061-TC; 81001; 82306; 84439-TC; 84443-TC; 85025-TC; 86431-TC; 87086-TC

== ENCOUNTER 2021-04-21 10:01 | Outpatient (CLI) | payer BC | END 2021-04-21 23:59 | disposition home or self-care (01) | LOC: RAD 10:01 | PROVIDERS: ATTEND Family Medicine | DX: M18.11 Unilateral primary osteoarthritis of first carpometacarpal joint, right hand (principal); M79.89 Other specified soft tissue disorders | CPT/HCPCS: 73110 ==

== ENCOUNTER 2022-04-23 10:23 | Outpatient (CLI) | payer BC | END 2022-04-23 23:59 | disposition home or self-care (01) | LOC: CT 10:23 | PROVIDERS: ATTEND Family Medicine | DX: R51.9 Headache, unspecified (principal) | CPT/HCPCS: 70450-TC ==

== ENCOUNTER 2022-06-11 09:00 | Outpatient (CLI) | payer BC | END 2022-06-11 23:59 | disposition home or self-care (01) | LOC: LAB 09:00 | PROVIDERS: ATTEND Surgery | DX: Z01.812 Encounter for preprocedural laboratory examination (principal); Z01.818 Encounter for other preprocedural examination; Z20.822 Contact with and (suspected) exposure to COVID-19 | CPT/HCPCS: 71046; U0003; C9803 ==

== ENCOUNTER 2022-06-15 07:53 | Day surgery (SDC) | payer BC | END 2022-06-15 10:45 | disposition home or self-care (01) | LOC: DS 07:53 | PROVIDERS: ATTEND Surgery | DX: Z12.11 Encounter for screening for malignant neoplasm of colon (principal); M19.90 Unspecified osteoarthritis, unspecified site; E11.9 Type 2 diabetes mellitus without complications; Z79.84 Long term (current) use of oral hypoglycemic drugs; Z79.899 Other long term (current) drug therapy | CPT/HCPCS: 45378; 71045; 82962; 93005; J2704; J3490 ×2; J7030 ==